=== PATIENT | female | born 1990 | race Caucasian/White ===

== ENCOUNTER → 2025-03-23 | Outpatient (CLI) | payer OTHER | LOC: M PLAIMG 09:42 | PROVIDERS: ATTEND Internal Medicine | DX: M54.59 Other low back pain (principal) ==

== ENCOUNTER 2025-08-08 22:31 | Emergency (ER) | payer OTHER ==
[~2025-08-08] VITALS: Ht 165.1 cm; Wt 107.7 kg
[2025-08-08] MEDS ORDERED: ASPI81CH33 PO (22:45)
[2025-08-08] MEDS ORDERED: CLOP75TA99 PO (22:45)
[2025-08-08] MEDS ORDERED: LOPR1TAB7 PO (22:45)
[2025-08-08 23:20] VITALS: BP 122/92; TEMP 98.6; O2SAT 97
== END 2025-08-09 03:35 | disposition left against medical advice (07) ==
LOC: M ED 22:31
DX: Z53.21 Procedure and treatment not carried out due to patient leaving prior to being seen by health care provider (principal)